=== PATIENT | male | born 1995 | race Caucasian/White ===

== ENCOUNTER 2018-04-29 18:25 | Emergency (ER) | payer MEDICAID ==
[2018-04-29 18:40] VITALS: BP 134/63
--- NOTE | 2018-04-29 18:40 | EDPHY ---
H & P Stated Complaint: right shoulder injury Time Seen by Provider: 04/29/18 18:35 HPI/ROS: CHIEF COMPLAINT: Right shoulder pain HISTORY OF PRESENT ILLNESS: The patient is a 22-year-old man who was diving for football and states he landed on his elbow and jammed his shoulder. He had immediate pain to his right shoulder posteriorly. He has no pain with elevation of his shoulder anteriorly or laterally but has pain with rotation behind his back. No clavicle pain. No neck pain. No head injury. Severity: Moderate Modifying factors: Is movement as above REVIEW OF SYSTEMS: Constitutional: denies: chills, fever, recent illness, recent injury EENTM: denies: blurred vision, double vision, nose congestion Respiratory: denies: cough, shortness of breath Cardiac: denies: chest pain, irregular heart rate, lightheadedness, palpitations Gastrointestinal/Abdominal: denies: abdominal pain, diarrhea, nausea, vomiting, blood streaked stools Genitourinary: denies: dysuria, frequency, hematuria, pain Musculoskeletal: See HPI Skin: denies: lesions, rash, jaundice, bruising Neurological: denies: headache, numbness, paresthesia, tingling, dizziness, weakness Hematologic/Lymphatic: denies: blood clots, easy bleeding, easy bruising Immunologic/allergic: denies: HIV/AIDS, transplant 10 systems reviewed and negative except as noted EXAM: GENERAL: Well-appearing, well-nourished and in no acute distress. HEAD: Atraumatic, normocephalic. EYES: Pupils equal round and reactive to light, extraocular movements intact, sclera anicteric, conjunctiva are normal. ENT: TMs normal, nares patent, oropharynx clear without exudates. Moist mucous membranes. NECK: Normal range of motion, supple without lymphadenopathy or JVD. LUNGS: Breath sounds clear to auscultation bilaterally and equal. No wheezes rales or rhonchi. HEART: Regular rate and rhythm without murmurs, rubs or gallops. ABDOMEN: Soft, nontender, normoactive bowel sounds. No guarding, no rebound. No masses appreciated. BACK: No CVA tenderness, no spinal tenderness, step-offs or deformities EXTREMITIES: No clavicle tenderness or deformity. No obvious step-offs. No pain with axial loading or pulling. Pain to the right shoulder with rotation and turning our behind back. Normal pulses and sensation distally. No left- sided injuries. NEUROLOGICAL: Cranial nerves II through XII grossly intact. Normal speech, normal gait. 5/5 strength, normal movement in all extremities, normal sensation , normal reflexes PSYCH: Normal mood, normal affect. SKIN: Warm, dry, normal turgor, no visible rashes or lesions. Source: Patient Exam Limitations: No limitations - Medical/Surgical History Hx Asthma: No Hx Chronic Respiratory Disease: No Hx Diabetes: No Hx Cardiac Disease: No Hx Renal Disease: No Hx Cirrhosis: No Hx Alcoholism: No Hx HIV/AIDS: No Hx Splenectomy or Spleen Trauma: No Other PMH: none - Family History Significant Family History: No pertinent family hx - Social History Smoking Status: Never smoked Alcohol Use: Sober Drug Use: None Constitutional: Initial Vital Signs Temperature (C) 37 C 04/29/18 18:33 Heart Rate 90 04/29/18 18:33 Respiratory Rate 16 04/29/18 18:33 Blood Pressure 134/63 H 04/29/18 18:33 O2 Sat (%) 97 04/29/18 18:33 O2 Delivery Mode Room Air Allergies/Adverse Reactions: No Known Allergies Allergy (Unverified 04/29/18 18:38) Home Medications: Medication Instructions Recorded NK [No Known Home Meds] 04/29/18 Medical Decision Making - Diagnostics Imaging Results: Imaging Impressions Shoulder X-Ray 04/29/18 18:38 Impression: Normal Right shoulder series. Imaging: Discussed imaging studies w/ call center professional Radiologist Procedures: Procedure: Splint placement. A sling was applied. After application of the splint I returned and re- examined the patient. The splint was adequately immobilizing the joint and distal to the splint the patient's circulation and sensation was intact. ED Course/Re-evaluation: We discussed the x-rays which are reassuring. I suspect ligamentous injury. We will place the patient in a sling and have him follow up with Orthopedics for further treatment if needed. Differential Diagnosis: Partial list of the Differential diagnosis considered include but were not limited to; rotator cuff injury, muscle strain, AC separation and although unlikely based on the history and physical exam, I also considered clavicle fracture, dislocation, nerve injury. I discussed these differential diagnoses and the plan with the patient as well as the usual and expected course. The patient understands that the diagnosis is provisional and that in medicine we are not always correct and that further workup is often warranted. Usual and customary warnings were given. All of the patient's questions were answered. The patient was instructed to return to the emergency department should the symptoms at all worsen or return, otherwise to followup with the physician as we discussed. Departure - Departure Disposition: Home, Routine, Self-Care Clinical Impression: Shoulder pain, right Qualifiers: Chronicity: acute Qualified Code(s): M25.511 - Pain in right shoulder Condition: Good Instructions: Shoulder Pain (ED) Referrals: NONE *PRIMARY CARE P,. [Primary Care Provider] - As per Instructions Cam García MD [Medical Doctor] - As per Instructions
== END 2018-04-29 19:21 | disposition home or self-care (01) ==
LOC: CED 18:25
DX: S49.91XA Unspecified injury of right shoulder and upper arm, initial encounter (principal); W18.39XA Other fall on same level, initial encounter; Y93.61 Activity, american tackle football; Y92.321 Football field as the place of occurrence of the external cause
CPT/HCPCS: 73030-PO; A4565

== ENCOUNTER 2018-11-08 12:38 | Emergency (ER) | payer MEDICAID | END 2018-11-08 12:50 | disposition left against medical advice (07) | LOC: CED 12:38 | DX: Z53.21 Procedure and treatment not carried out due to patient leaving prior to being seen by health care provider (principal) ==